=== PATIENT | male | born 1965 | race Caucasian/White ===

== ENCOUNTER 2020-09-07 01:04 | Observation (INO) | payer BC ==
[~2020-09-07] VITALS: Ht 170.2 cm; Wt 91.4 kg
[2020-09-07 01:49] LABS: COLLECTION METHOD CLEAN CATCH
[2020-09-07 01:52] LABS: BASO # 0.1 (0.0-0.2); BASO % 1.2 % (0.0-2.0); EOS # 0.4 (0.0-0.7); EOS % 4.4 % (0-4.0); GRAN # 5.6 (1.4-6.5); GRAN % 68.1 % (42.2-75.2); HEMATOCRIT 44.5 % (42.0-52.0); HEMOGLOBIN 14.9 g/dl (13.5-18.0); LYMPH % 12.6 % (20.0-51.0); MEAN CELL VOLUME 87 fl (80.0-100.0); MEAN CORPUSCULAR HEMOGLOBIN 29 pg (27.0-31.0); MEAN CORPUSCULAR HGB CONC 34 g/dl (33.0-37.0); MEAN PLATELET VOLUME 10.9 fl (7.4-10.4); MONO # 1.1 (0.1-0.6); MONO % 13.2 % (1.7-9.3); PLATELET COUNT 186 K/mm3 (130-400); RED BLOOD COUNT 5.12 M/mm3 (4.20-5.60); REDCELL DISTRIBUTION WIDTH-CV 13.4 % (11.5-14.5)
[2020-09-07 01:54] LABS: MUCOUS Present /lpf; PH 5 (5-8); SQUAMOUS EPITHELIAL None Seen /hpf; URINE APPEARANCE Clear; URINE BACTERIA None Seen /hpf; URINE BILIRUBIN Negative (NEGATIVE); URINE BLOOD Negative (NEGATIVE); URINE COLOR Yellow; URINE GLUCOSE Negative (NEGATIVE); URINE KETONE Negative (NEGATIVE); URINE LEUKOCYTE ESTERASE Negative (NEGATIVE); URINE NITRATE Negative (NEGATIVE); URINE PROTEIN(semi-quant) Negative (NEGATIVE); URINE RBC 0-2 /hpf; URINE UROBILINOGEN Negative (NEGATIVE)
[2020-09-07 02:02] LABS: ALANINE AMINOTRANSFERASE 27 U/L (4-49); ALKALINE PHOSPHATASE 48 U/L (50-136); ANION GAP 9 mmol/L (7-16); AST,SGOT 31 U/L (15-37); BILIRUBIN,TOTAL 0.4 mg/dL (0.0-1.0); BLOOD UREA NITROGEN 23 mg/dL (9-20); CALCIUM 8.5 mg/dL (8.4-10.2); CARBON DIOXIDE 18 mmol/L (22-30); CHLORIDE 108 mmol/L (98-107); CREATININE, serum 1.13 (0.66-1.25); GLUCOSE 127 mg/dL (74-106); LIPASE 146 U/L (23-300); POTASSIUM 4.1 mmol/L (3.4-5.0); SODIUM 135 mmol/L (137-145); TOTAL PROTEIN 7.3 gm/dL (6.4-8.2)
[2020-09-07 02:25] LABS: TROPONIN-I < 0.012 ng/mL (0.000-0.035)
[2020-09-07] MEDS ORDERED: DEPO-TESTOS200 MG/M1 IM (02:31)
[2020-09-07] MEDS ORDERED: NORVASC 5MG5 MG/TAB PO (02:32)
[2020-09-07] MEDS ORDERED: KAPSPARGO SPRI100 MG PO (02:32)
[2020-09-07] MEDS ORDERED: COZAAR100 MG PO (02:32)
[2020-09-07] MEDS ORDERED: FLOMAX 0.40.4 MG/CAP PO (02:33)
[2020-09-07] MEDS ORDERED: ASPIRIN 81M81 MG/TA2 PO (02:33)
[2020-09-07] MEDS ORDERED: LOFIBRA160 MG PO (02:33)
[2020-09-07] MEDS ORDERED: BACTRIM DS 8001 TAB PO (03:24)
[2020-09-07] MEDS ORDERED: TOPROL XL100 MG PO (03:26)
[2020-09-07 04:16] LABS: HEMOGLOBIN 12.9 g/dl (13.5-18.0)
--- NOTE | 2020-09-07 04:20 | NUR ---
PT ARRIVES FROM ED VIA W/C TO ROOM 348.
[2020-09-07 04:25] VITALS: BP 134/81; PULSE 67; TEMP 98.8
--- NOTE | 2020-09-07 05:00 | NUR ---
PT DENIES PAIN. HAS IVF INFUSING TO RIGHT AC AND SL TO LEFT FOREARM. IS ALERT AND ORIENTED X4. PT IS ON CLEAR LIQUIDS. WILL MONITOR FOR CHANGES.
[2020-09-07 07:41] VITALS: BP 119/73; PULSE 60; TEMP 98.1
[2020-09-07 08:32] LABS: HEMATOCRIT 37.6 % (42.0-52.0); HEMOGLOBIN 12.7 g/dl (13.5-18.0)
--- NOTE | 2020-09-07 11:22 | NUR ---
SW met with the patient to discuss discharge plan. The patient lives in [place], [place] with his , Louann (ph#[phone]), and their son. They are in [place] looking for a new home. His will be starting her new job at [employer] as an distance education director. He states that they are staying at a hotel while here. He reports independence with ADLs and does not have any DME. The patient's PCP is Dr. Fierro in [place], [place] and he receives his medications from [facility]. He reports no difficulties obtaining his meds. The patient does does not have DPOA-HC in EMR, but he states that he does have one completed and that his is his DPOA-HC. The patient plans to return to house hunting with his family upon discharge. No additional needs at this time. *Discharge plan: home with family*
--- NOTE | 2020-09-07 11:30 | NUR ---
Patient has been doing well this morning. No bloody bowel movements since arriving to ED last night. No complaints of pain or nausea. Dr Onofre seen patient and will be discharging this afternoon if HGB ok. No plans for a scope today. No other changes at this time. Call light within reach.
[2020-09-07 11:43] VITALS: BP 120/72; PULSE 60; TEMP 98.2
[2020-09-07 16:06] LABS: HEMATOCRIT 40.3 % (42.0-52.0); HEMOGLOBIN 13.4 g/dl (13.5-18.0)
[2020-09-07 16:18] VITALS: BP 115/68; PULSE 60; TEMP 98
--- NOTE | 2020-09-07 17:30 | NUR ---
Patient is discharging home with his . Discharge instructions discussed with patient. No questions verbalized. INT's discontinued. Patient is aware he needs to follow up with PCP and Gi doctor at home. Copies of discharge instructions given to patient. Patient walked out with this nurse. All belongings sent with patient.
== END 2020-09-07 17:30 | disposition home or self-care (01) ==
LOC: COL.ER 01:04 → SURG 03:55
PROVIDERS: Emergency Medicine; Nurse Practitioner Family; ADMIT Internal Medicine
DX: K62.5 Hemorrhage of anus and rectum (principal); I10 Essential (primary) hypertension; E78.5 Hyperlipidemia, unspecified; Z90.49 Acquired absence of other specified parts of digestive tract; Z79.82 Long term (current) use of aspirin; Z79.899 Other long term (current) drug therapy; Z79.52 Long term (current) use of systemic steroids; Z87.891 Personal history of nicotine dependence; Z88.0 Allergy status to penicillin; Z87.19 Personal history of other diseases of the digestive system; Z83.3 Family history of diabetes mellitus; Z83.79 Family history of other diseases of the digestive system
CPT/HCPCS: J7030; J7120; Q9967

== ENCOUNTER → 2021-12-21 | Outpatient (CLI) | payer OTHER ==
[~2021-12-21] MED LIST: ASPIRIN 81M81 MG/TA2 PO; BACTRIM DS 8001 TAB PO; COZAAR100 MG PO; DEPO-TESTOS200 MG/M1 IM; FLOMAX 0.40.4 MG/CAP PO; KAPSPARGO SPRI100 MG PO; LOFIBRA160 MG PO; NORVASC 5MG5 MG/TAB PO; TOPROL XL100 MG PO
[2021-12-21 13:09] LABS: HEMATOCRIT 51.2 % (42.0-52.0); HEMOGLOBIN 17.2 g/dl (13.5-18.0); MEAN CELL VOLUME 87 fl (80.0-100.0); MEAN CORPUSCULAR HEMOGLOBIN 29 pg (27-31); MEAN CORPUSCULAR HGB CONC 34 g/dl (33.0-37.0); MEAN PLATELET VOLUME 10.1 fl (7.4-10.4); PLATELET COUNT 213 K/mm3 (130-400); RED BLOOD COUNT 5.89 M/mm3 (4.20-5.60); REDCELL DISTRIBUTION WIDTH-CV 14.8 % (11.5-14.5)
[2021-12-21 13:16] LABS: ANION GAP 9 mmol/L (7-16); BLOOD UREA NITROGEN 13 mg/dL (8-26); CALCIUM 9.1 mg/dL (8.4-10.2); CARBON DIOXIDE 21 mmol/L (22-29); CHLORIDE 109 mmol/L (98-107); CREATININE, serum 0.95 mg/dL (0.72-1.25); GLUCOSE 112 mg/dL (70-99); POTASSIUM 3.8 mmol/L (3.5-4.5); SODIUM 139 mmol/L (136-145)
[2021-12-21 13:25] LABS: TROPONIN-I < 0.010 ng/mL (0.00-0.033)
== END ==
LOC: COL.LAB 12:03
PROVIDERS: Internal Medicine Interventional Cardiology
DX: R07.9 Chest pain, unspecified (principal)